=== PATIENT | male | born 1995 | race Hispanic/Latino ===

== ENCOUNTER 2020-08-29 19:22 | Emergency (ER) | payer SELFPAY ==
--- NOTE | 2020-08-29 20:08 | CT ---
CT BRAIN NONCONTRAST: DATE: 08/29/2020 HISTORY: 25-year-old male status post acute head trauma from fall FINDINGS: There is no evidence of acute intra-axial or extra-axial hemorrhage. There is no midline shift or any other mass effect. There is no extra-axial fluid collection. The ventricles are normal in size and configuration. The tympanomastoid cavities, and the upper portions of the paranasal sinuses included in these images, are grossly clear. Calvarium is intact. Left periorbital superficial soft tissue swelling. Small focus of subcutaneous emphysema superficial to the left zygoma indicates laceration. IMPRESSION: Normal brain.
--- NOTE | 2020-08-29 20:11 | CT ---
CT maxillofacial noncontrast: 08/29/2020 HISTORY: 25-year-old male status post acute facial trauma from fall. FINDINGS: No fracture. There is left periorbital superficial soft tissue swelling. A small focus of subcutaneou s emphysema superficial to the left lateral orbital rim indicates laceration. Globes are bilaterally intact. No post septal intraorbital gas, hematoma, or edema. Paranasal sinuses are clear. IMPRESSION: 1.) Acute, traumatic, contusion and laceration of left periorbital superficial soft tissues. 2) no fracture
[2020-08-29] MEDS ORDERED: Lidocaine 1% (PF) 30 ML VIAL ONE (20:17)
[2020-08-29] MEDS ORDERED: Acetaminophen 500 MG TAB ONE (20:23)
[2020-08-29] MEDS ORDERED: Ketorolac Tromethamine 30 MG/ML VIAL ONE (20:23)
[2020-08-29] MEDS ORDERED: Bacitracin 1 PK ONE (20:37)
== END 2020-08-29 21:05 | disposition home or self-care (01) ==
LOC: ERS 19:22
DX: S05.32XA Ocular laceration without prolapse or loss of intraocular tissue, left eye, initial encounter (principal); Y04.8XXA Assault by other bodily force, initial encounter
CPT/HCPCS: 12011; 70450; 70486; 96372; J1885; J2001

== ENCOUNTER 2020-09-03 18:03 | Emergency (ER) | payer SELFPAY | END 2020-09-03 18:39 | disposition home or self-care (01) | LOC: ERS 18:03 | DX: S01.81XD Laceration without foreign body of other part of head, subsequent encounter (principal) ==

== ENCOUNTER 2022-03-28 13:22 | Inpatient (IN) | payer OTHER, SELFPAY ==
[2022-03-28] MEDS ORDERED: Acetaminophen 500 MG TAB ONE (13:40)
[2022-03-28 14:18] LABS: Hemoglobin 4.1 g/dL (14.0-18.0); Mean Corpuscular HGB CONC 36.5 g/dL (32.0-36.0); Mean Corpuscular Hemoglobin 38.7 pg (27.0-31.0); Mean Platelet Volume 13.2 fL (7.4-10.4); Platelet Count 3 thou/uL (130-400); RBC Distribution Width 13.9 % (11.5-14.5); Red Blood Cell (RBC) Count 1.07 mill/uL (4.70-6.10); White Blood Cell (WBC) Count 1.4 thou/uL (4.8-10.8)
[2022-03-28 14:56] LABS: SARS-CoV-2 NAA Rapid Test Not Detected (NotDetected)
[2022-03-28] MEDS ORDERED: Cefepime 2 GM VIAL ONE (15:04)
[2022-03-28 15:09] LABS: Band 8 % (5-11); Lymphocytes 52 % (21-51); MDiff Complete? YES; Macrocytosis SLIGHT = 6-15 cells (100X) (0-5/hpf); Monocytes 4 % (0-10); Neutrophil 36 % (42-75); Platelet Morphology Comment Appears Decreased; Polychromasia SLIGHT = 2-3 cells (100X) (0-2/hpf); Reflex for Review?? YES
[2022-03-28] MEDS ORDERED: SODIUM CHLORIDE 0.9% IVPB SCH (15:15)
[2022-03-28] MEDS ORDERED: VANCOMYCIN IVPB SCH (15:15)
[2022-03-28 15:30] LABS: ALT (SGPT) 35 U/L (8-55); AST (SGOT) 24 U/L (5-34); Alkaline Phosphatase 100 U/L (40-110); Anion Gap 13 mmol/L (10-20); BUN (Urea Nitrogen) 8 mg/dL (8.9-20.6); Bilirubin, Total 0.7 mg/dL (0.2-1.2); CK (CPK) 64 U/L (30-200); Calc. Creatinine Clearance 0 mL/min (70-130); Calcium 8.4 mg/dL (7.8-10.44); Carbon Dioxide 23 mmol/L (22-29); Chloride 105 mmol/L (98-107); Globulin 2.6 g/dL (2.4-3.5); Glucose 146 mg/dL (70-105); Lipase 13 U/L (8-78); Potassium 3.5 mmol/L (3.5-5.1); Protein, Total 6.6 g/dL (6.0-8.3); Sodium 137 mmol/L (136-145)
[2022-03-28] MEDS ORDERED: Bisacodyl 10 MG SUPP PR PRN (16:43)
[2022-03-28] MEDS ORDERED: Calcium Carbonate 500 MG ChewTAB PO PRN (16:43)
[2022-03-28] MEDS ORDERED: Ondansetron ODT 4 MG TAB PO PRN (16:43)
[2022-03-28] MEDS ORDERED: Senokot S 8.6-50 MG TAB PO PRN (16:43)
[2022-03-28] MEDS ORDERED: Ondansetron PF 4 MG/2 ML Vial IVP PRN (16:43)
[2022-03-28] MEDS ORDERED: Acetaminophen 325 MG TAB PO PRN (16:43)
[2022-03-28] MEDS ORDERED: Bisacodyl 5 MG TAB PO PRN (16:43)
[2022-03-28 20:15] LABS: Iron 72 ug/dL (65-175); Iron Binding Capacity, Total 293 mcg/dL (261-462)
[2022-03-28 20:16] VITALS: BP 123/59
[2022-03-28 20:26] LABS: Iron 83 ug/dL (65-175); Iron Binding Capacity, Total 310 mcg/dL (261-462)
[2022-03-28] MEDS ORDERED: Vancomycin 1 GM in Premix Bag 1 BAG IVPB SCH (21:00)
[2022-03-28] MEDS: Famotidine 20 MG TAB PO SCH (21:28)
[2022-03-28] MEDS: Famotidine/PF 20 mg/2ml Vial SLOW IVP SCH (21:29)
[2022-03-28] MEDS: Sodium Chloride 0.9% 1,000 ML IV SCH (21:29)
[2022-03-28] MEDS ORDERED: Acyclovir Sodium 850 MG in Sodium Chloride 0.9% 250 ML 250 ML IVPB SCH (22:30)
[2022-03-28] MEDS ORDERED: diphenhydrAMINE 50 MG/ML VIAL ONE ×2 (22:32→22:35)
[2022-03-28] MEDS ORDERED: Lorazepam 2 MG/ML VIAL ONE ×2 (22:35)
[2022-03-28] MEDS ORDERED: Acetaminophen 650 MG Suppository PR SCH (22:45)
[2022-03-28] MEDS ORDERED: methylPREDNISolone Sod Succ/PF 125 MG/2 ML VIAL IVP SCH (22:45)
[2022-03-28 22:46] LABS: Hemoglobin A1c 7.2 % (4.0-6.0)
[2022-03-28 23:06] LABS: Bacteria/HPF None Seen HPF (None Seen); Bilirubin Negative (Negative); Blood, Urine Negative (Negative); Clarity Clear (Clear); Glucose, Urine (Dipstick) Normal (Negative); Ketone, Urine Negative (Negative); Leukocyte Negative Leu/uL (Negative); Nitrite Negative (Negative); Protein, Urine (Dipstick) Negative (Neg-Trace); RBC/HPF 0-3 HPF (0-3); Squamous Epithelial 0-3 HPF (0-3); WBC/HPF 0-3 HPF (0-3); pH, Urine 6.5 (5.0-9.0)
[2022-03-28 23:16] LABS: Hemoglobin 4.9 g/dL (14.0-18.0); Mean Corpuscular HGB CONC 35.1 g/dL (32.0-36.0); Mean Corpuscular Hemoglobin 36.1 pg (27.0-31.0); Mean Platelet Volume 7.4 fL (7.4-10.4); Platelet Count 30 thou/uL (130-400); RBC Distribution Width 16.7 % (11.5-14.5); Red Blood Cell (RBC) Count 1.37 mill/uL (4.70-6.10); White Blood Cell (WBC) Count 3.2 thou/uL (4.8-10.8)
[2022-03-28 23:20] LABS: Amphetamine Not Detected (NotDetected); Barbiturates Screen Not Detected (NotDetected); Benzodiazepine Screen Not Detected (NotDetected); Cocaine Metabolite Screen Not Detected (NotDetected); Methadone Not Detected (NotDetected); Methamphetamine Not Detected (NotDetected); Opiate Screen Not Detected (NotDetected); Oxycodone Screen Not Detected (NotDetected); Phencyclidine (PCP) Not Detected (NotDetected); THC/Cannabinoid Screen Not Detected (NotDetected); Tricyclic Screen Not Detected (NotDetected)
[2022-03-28 23:24] LABS: INR-International Normal Ratio 1.2; Prothrombin Time 15.8 sec (12.0-14.7)
[2022-03-28 23:25] LABS: Legionella Urinary Ag Negative (Negative); Strep pneumo Urine Ag NEGATIVE (NEGATIVE)
[2022-03-28 23:25] LABS: PTT 33.7 sec (22.9-36.1)
[2022-03-28 23:30] LABS: Acetaminophen Less than 10.0 mcg/mL (10.0-30.0); Alcohol Less than 10 mg/dL (Less than 10); Anion Gap 18 mmol/L (10-20); BUN (Urea Nitrogen) 8 mg/dL (8.9-20.6); Calc. Creatinine Clearance 148 mL/min (70-130); Carbon Dioxide 19 mmol/L (22-29); Chloride 108 mmol/L (98-107); Glucose 108 mg/dL (70-105); Magnesium 2.1 mg/dL (1.6-2.6); Potassium 3.9 mmol/L (3.5-5.1); Salicylate Less than 8.0 mg/dL (15.0-30.0); Sodium 141 mmol/L (136-145)
[2022-03-28] MEDS: Cefepime 2 GM in Sodium Chloride 0.9% 100 ML IVPB SCH (23:33)
[2022-03-28 23:41] LABS: Band 2 % (5-11); Eosinophils 1 % (0-10); Lymphocytes 87 % (21-51); MDiff Complete? YES; Monocytes 3 % (0-10); Myelocyte 1 % (0-0); Neutrophil 6 % (42-75); Platelet Morphology Comment Appears Decreased
[2022-03-28] MEDS: VANCOMYCIN 1.25 GM/250 ML BAG 1.25 GM in Premix Bag 1 BAG IVPB SCH (23:43)
[2022-03-29 00:47] VITALS: BMI 27.8
[2022-03-29 03:41] LABS: Thyroid Stimulating Hormone 0.447 uIU/mL (0.35-4.94)
[2022-03-29 06:27] LABS: Ferritin 1000.16 ng/mL (22-322)
[2022-03-29 06:50] LABS: Hemoglobin 5.9 g/dL (14.0-18.0); MONO NEGATIVE CONTROL ZONE White (Negative) (White); MONO POSITIVE CONTROL Pink Line (Positive) (PINK/RED); Mean Corpuscular HGB CONC 33.9 g/dL (32.0-36.0); Mean Corpuscular Hemoglobin 35.3 pg (27.0-31.0); Mean Platelet Volume 7.7 fL (7.4-10.4); Mononucleosis NEGATIVE (NEGATIVE); Platelet Count 29 thou/uL (130-400); RBC Distribution Width 15.8 % (11.5-14.5); Red Blood Cell (RBC) Count 1.67 mill/uL (4.70-6.10); White Blood Cell (WBC) Count 1.1 thou/uL (4.8-10.8)
[2022-03-29 07:03] LABS: Band 9 % (5-11); Eosinophils 1 % (0-10); Lymphocytes 65 % (21-51); MDiff Complete? YES; Monocytes 4 % (0-10); Neutrophil 21 % (42-75); Platelet Morphology Comment Appears Decreased
[2022-03-29] MEDS: Acyclovir Sodium 850 MG in Sodium Chloride 0.9% 250 ML 250 ML IVPB SCH ×3 (07:13→21:47)
[2022-03-29] MEDS: Sodium Chloride 0.9% 1,000 ML IV SCH ×2 (07:13→15:37)
[2022-03-29 07:22] LABS: ALT (SGPT) 56 U/L (8-55); AST (SGOT) 57 U/L (5-34); Albumin 3.8 g/dL (3.5-5.0); Alkaline Phosphatase 104 U/L (40-110); Anion Gap 13 mmol/L (10-20); BUN (Urea Nitrogen) 11 mg/dL (8.9-20.6); Bilirubin, Total 1.8 mg/dL (0.2-1.2); CRP (Inflammatory) 17.86 mg/dL (= or < 0.5); Calc. Creatinine Clearance 179 mL/min (70-130); Calcium 9.4 mg/dL (7.8-10.44); Carbon Dioxide 20 mmol/L (22-29); Cardiac Risk 3.5 (Less than 4.5); Chloride 112 mmol/L (98-107); Cholesterol 117 mg/dl (< 200 Desired); Globulin 3.5 g/dL (2.4-3.5); Glucose 145 mg/dL (70-105); HDL Cholesterol 33 mg/dL (>60 Neg Risk); LDL Cholesterol, Calculated 70 mg/dL; Magnesium 2.3 mg/dL (1.6-2.6); Potassium 4.5 mmol/L (3.5-5.1); Protein, Total 7.3 g/dL (6.0-8.3); Sodium 140 mmol/L (136-145); Triglycerides 72 mg/dL (Less than 150); Uric Acid 4.7 mg/dL (3.5-7.2)
[2022-03-29] MEDS: Cefepime 2 GM in Sodium Chloride 0.9% 100 ML IVPB SCH ×2 (08:15→16:34)
[2022-03-29] MEDS: Famotidine/PF 20 mg/2ml Vial SLOW IVP SCH ×2 (09:37→21:47)
[2022-03-29] MEDS: VANCOMYCIN 1.25 GM/250 ML BAG 1.25 GM in Premix Bag 1 BAG IVPB SCH ×2 (09:37→17:11)
[2022-03-29] MEDS: Famotidine 20 MG TAB PO SCH ×2 (09:51→21:47)
[2022-03-29] MEDS ORDERED: Fluconazole In NaCl,Iso-Osm 200 MG in Admixture Fee 1 EACH IVPB SCH (10:00)
[2022-03-29] MEDS ORDERED: Fluconazole In NaCl,Iso-Osm 200 MG in Premix Bag 1 BAG IVPB SCH (10:00)
[2022-03-29 12:52] LABS: Hemoglobin 6.6 g/dL (14.0-18.0); Mean Corpuscular HGB CONC 35.9 g/dL (32.0-36.0); Mean Corpuscular Hemoglobin 35.4 pg (27.0-31.0); Mean Corpuscular Volume 98.6 fL (78.0-98.0); Platelet Count 36 thou/uL (130-400); RBC Distribution Width 15.6 % (11.5-14.5); Red Blood Cell (RBC) Count 1.86 mill/uL (4.70-6.10); White Blood Cell (WBC) Count 1.8 thou/uL (4.8-10.8)
[2022-03-29 13:02] LABS: Fibrinogen 694 mg/dL (253-463); INR-International Normal Ratio 1.2; Prothrombin Time 15.7 sec (12.0-14.7)
[2022-03-29 13:03] LABS: PTT 37.5 sec (22.9-36.1)
[2022-03-29 13:12] LABS: D-Dimer Test 11.58 *mcg/mL (0.27-0.43); Lymphocytes 60 % (21-51); MDiff Complete? YES; Monocytes 4 % (0-10); Neutrophil 36 % (42-75); Platelet Morphology Comment Appears Decreased; Polychromasia SLIGHT = 2-3 cells (100X) (0-2/hpf)
[2022-03-29 13:21] LABS: Platelet Count 36 thou/uL (130-400)
[2022-03-29 13:42] LABS: HIV (1/2) Antibody/Antigen Non-Reactive (NonReactive); HIV 1/2 INDEX 0.12 S/CO (<1.00)
[2022-03-29 16:44] LABS: Vancomycin, Trough 14.3 ug/mL
[2022-03-30] MEDS: Cefepime 2 GM in Sodium Chloride 0.9% 100 ML IVPB SCH ×3 (00:09→16:48)
[2022-03-30] MEDS: Sodium Chloride 0.9% 1,000 ML IV SCH ×2 (02:05→10:42)
[2022-03-30] MEDS: Vancomycin 1.5 GRAM/300 ML BAG 1.5 GM in Premix Bag 1 BAG IVPB SCH ×2 (02:05→10:42)
[2022-03-30 03:48] LABS: ALT (SGPT) 40 U/L (8-55); AST (SGOT) 20 U/L (5-34); Albumin 3.2 g/dL (3.5-5.0); Alkaline Phosphatase 84 U/L (40-110); Anion Gap 13 mmol/L (10-20); BUN (Urea Nitrogen) 15 mg/dL (8.9-20.6); Bilirubin, Total 0.7 mg/dL (0.2-1.2); Calc. Creatinine Clearance 191 mL/min (70-130); Calcium 8.8 mg/dL (7.8-10.44); Carbon Dioxide 20 mmol/L (22-29); Chloride 112 mmol/L (98-107); Globulin 2.9 g/dL (2.4-3.5); Glucose 136 mg/dL (70-105); Magnesium 2.2 mg/dL (1.6-2.6); Protein, Total 6.1 g/dL (6.0-8.3); Sodium 141 mmol/L (136-145)
[2022-03-30 04:05] LABS: Anisocytosis SLIGHT = 6-15 cells (100X) (0-5/hpf); Band 6 % (5-11); Hemoglobin 6.2 g/dL (14.0-18.0); Lymphocytes 73 % (21-51); MDiff Complete? YES; Mean Corpuscular HGB CONC 34.9 g/dL (32.0-36.0); Mean Corpuscular Hemoglobin 34.2 pg (27.0-31.0); Mean Corpuscular Volume 97.9 fL (78.0-98.0); Mean Platelet Volume 8.2 fL (7.4-10.4); Monocytes 3 % (0-10); Neutrophil 18 % (42-75); Platelet Count 23 thou/uL (130-400); Platelet Morphology Comment Appears Decreased; RBC Distribution Width 16.2 % (11.5-14.5); Red Blood Cell (RBC) Count 1.82 mill/uL (4.70-6.10); White Blood Cell (WBC) Count 1.4 thou/uL (4.8-10.8)
[2022-03-30 04:09] LABS: HIV (1/2) Antibody/Antigen Non-Reactive (NonReactive); HIV 1/2 INDEX 0.08 S/CO (<1.00)
[2022-03-30] MEDS: Acyclovir Sodium 850 MG in Sodium Chloride 0.9% 250 ML 250 ML IVPB SCH ×2 (07:05→14:37)
[2022-03-30] MEDS ORDERED: Sodium Bicarbonate 2.5 MEQ/5 ML VIAL ONE (08:28)
[2022-03-30] MEDS ORDERED: Fentanyl 100 MCG/2 ML VIAL ONE (08:30)
[2022-03-30] MEDS ORDERED: Midazolam HCl 2 mg/2 ml Vial ONE (08:30)
[2022-03-30] MEDS: Famotidine 20 MG TAB PO SCH (08:33)
[2022-03-30] MEDS: Famotidine/PF 20 mg/2ml Vial SLOW IVP SCH (08:36)
[2022-03-30] MEDS ORDERED: Folic Acid 1 MG TAB PO SCH (11:00)
[2022-03-30] MEDS ORDERED: Thiamine 100 MG TAB PO SCH (11:00)
[2022-03-30 13:24] LABS: SARS-CoV-2 NAA Rapid Test Not Detected (NotDetected)
[2022-03-30 15:09] LABS: Hemoglobin 7.4 g/dL (14.0-18.0); Mean Corpuscular HGB CONC 34.5 g/dL (32.0-36.0); Mean Corpuscular Hemoglobin 33.3 pg (27.0-31.0); Mean Corpuscular Volume 96.5 fL (78.0-98.0); Mean Platelet Volume 8.6 fL (7.4-10.4); Platelet Count 22 thou/uL (130-400); RBC Distribution Width 15.7 % (11.5-14.5); Red Blood Cell (RBC) Count 2.21 mill/uL (4.70-6.10); White Blood Cell (WBC) Count 2.4 thou/uL (4.8-10.8)
[2022-03-30 15:30] LABS: Lymphocytes 70 % (21-51); MDiff Complete? YES; Monocytes 4 % (0-10); Neutrophil 26 % (42-75); Platelet Morphology Comment Appears Decreased; Polychromasia SLIGHT = 2-3 cells (100X) (0-2/hpf)
[2022-03-30 16:08] VITALS: TEMP 98.6
[2022-03-30] MEDS ORDERED: VANCOMYCIN IVPB SCH (17:00)
[2022-03-31] MEDS ORDERED: Thiamine 100 MG TAB PO SCH (09:00)
[2022-03-31] MEDS ORDERED: Folic Acid 1 MG TAB PO SCH (09:00)
== END 2022-03-30 18:15 | disposition short-term general hospital (02) | DRG 809 ==
LOC: ERS 13:22 → SUATTDRO 13:22 → MSONC 16:19 → CCU 22:52
PROVIDERS: ADMIT Internal Medicine; ATTEND Internal Medicine
PROC: 30233N1 Transfusion of Nonautologous Red Blood Cells into Peripheral Vein, Percutaneous Approach (ICD-10-PCS; principal; 2022-03-28)
PROC: 6A550Z2 Pheresis of Platelets, Single (ICD-10-PCS; 2022-03-28)
PROC: 079T3ZX Drainage of Bone Marrow, Percutaneous Approach, Diagnostic (ICD-10-PCS; 2022-03-30)
PROC: 07DR3ZX Extraction of Iliac Bone Marrow, Percutaneous Approach, Diagnostic (ICD-10-PCS; 2022-03-30)
DX: D61.818 Other pancytopenia (principal); C95.00 Acute leukemia of unspecified cell type not having achieved remission; Z20.822 Contact with and (suspected) exposure to COVID-19; F14.10 Cocaine abuse, uncomplicated; F10.10 Alcohol abuse, uncomplicated; H53.8 Other visual disturbances; R50.81 Fever presenting with conditions classified elsewhere; K06.8 Other specified disorders of gingiva and edentulous alveolar ridge; H35.60 Retinal hemorrhage, unspecified eye; R04.0 Epistaxis; Z98.890 Other specified postprocedural states
CPT/HCPCS: 20225; 36415; 36416; 36430; 70450; 71045; 76700; 77002; 80053; 80061; 80202; 80306; 80307; 81001; 82550; 82607; 82728; 82746; 83010; 83036; 83540; 83550; 83605; 83615; 83690; 83735; 84443; 84484; 84550; 85025; 85046; 85049; 85060; 85300; 85362; 85379; 85384; 85610; 85730; 86140; 86308; 86850; 86900; 86901; 87040; 87081; 87389; 87430; 87449; 87529; 87899; 88184; 93005; 93010; 96361; 96365; 96366; 96367; J0133; J0692; J1200; J1450; J2060; J2250; J2930; J3010; J3370; J3490; J7030; J7050; P9016; P9035; S0028; U0002